=== PATIENT | male | born 1990 | race Caucasian/White ===

== ENCOUNTER 2017-06-26 12:17 | Emergency (ER) | payer OTHER ==
[~2017-06-26] VITALS: Ht 182.9 cm; Wt 79.4 kg
[~2017-06-26 12:17] MED LIST: CIPROFLOXACIN500 M1 PO; CLARITIN10 MG PO; CYCLOBENZAPRINE5 MG PO; NORFLEX100 MG PO; ZYRTEC10 M2 PO
[2017-06-26 13:38] LABS: BASOPHILS 0.5 % (0.0-2.0); EOSINOPHILS 5.9 % (0.0-3.0); HEMATOCRIT 44.1 % (42.0-52.0); HEMOGLOBIN 15.7 gm/dL (14.0-18.0); LYMPHOCYTES 16.8 % (24.0-44.0); MCH 34.2 pg (26.0-34.0); MCHC 35.5 g/dL (28.0-37.0); MCV 96.3 fL (80.0-100.0); MONOCYTES 10.6 % (1.0-8.0); PLATELET COUNT 169 thou/uL (150-400); POLYS 66.2 % (36.0-66.0); RBC 4.58 mil/uL (4.50-6.00); RDW 13.6 % (10.5-14.5); WBC 10.5 thou/uL (4.0-11.0)
[2017-06-26 13:39] LABS: MANUAL DIFF NO
[2017-06-26] MEDS ORDERED: IBUPROFEN 600600 M1 PO (14:43)
[2017-06-26 14:55] VITALS: BP 130/77
== END 2017-06-26 14:56 | disposition home or self-care (01) ==
LOC: ER 12:17
PROVIDERS: Nurse Practitioner
DX: S16.1XXA Strain of muscle, fascia and tendon at neck level, initial encounter (principal); S80.11XA Contusion of right lower leg, initial encounter; M25.512 Pain in left shoulder; M25.552 Pain in left hip; R07.89 Other chest pain; F10.99 Alcohol use, unspecified with unspecified alcohol-induced disorder; V29.9XXA Motorcycle rider (driver) (passenger) injured in unspecified traffic accident, initial encounter; Y93.55 Activity, bike riding; Y92.89 Other specified places as the place of occurrence of the external cause; Y99.8 Other external cause status